=== PATIENT | male | born 1965 | race Caucasian/White ===

== ENCOUNTER → 2016-06-13 | Outpatient (CLI) | payer OTHER ==
[~2016-06-13] VITALS: Ht 167.6 cm; Wt 95.5 kg
[~2016-06-13] MED LIST: AIRBORNE KIDS1 EACH PO; COQ-10100 MG PO; VITAMIN D33000 UNIT PO
== END | disposition home or self-care (01) ==
LOC: AMB 06-12 12:30 → OPR 06-12 14:00 → AMB 08:30
DX: K22.2 Esophageal obstruction (principal); K20.9 Esophagitis, unspecified; K21.9 Gastro-esophageal reflux disease without esophagitis; G47.33 Obstructive sleep apnea (adult) (pediatric); E66.9 Obesity, unspecified
CPT/HCPCS: 88305; B4087; J2250; J3010